=== PATIENT | female | born 1985 | race Caucasian/White ===

== ENCOUNTER 2022-02-22 19:58 | Emergency (ER) | payer OTHER ==
[2022-02-22 22:41] LABS: BASOPHIL 0.3 % (0-2); EOSINOPHIL 0.3 % (0-5); HCT 37.8 % (37.0-47.0); HGB 12.2 g/dl (12.5-16.0); LYMPHOCYTE 8.5 % (15-48); MCH 26.3 pg (25.0-31.0); MCHC 32.3 g/dL (32.0-36.0); MCV 81.5 fL (78.0-100.0); MONOCYTE 5.1 % (0-12); MPV 9.9 fL (6.0-9.5); NEUTROPHIL 85.4 % (41-80); NRBC 0; PLT 219 K/uL (150-400); RBC 4.64 M/uL (4.20-5.40); RDW 13.1 % (11.5-14.0); WBC 11.7 K/uL (4.0-10.5)
[2022-02-22 22:56] LABS: ALBUMIN 3.6 g/dL (3.4-5.0); BILIRUBIN - TOTAL 0.4 mg/dL (0.2-1.0); BUN/CREAT RATIO (CALC) 20.3 RATIO; CREATININE 0.74 mg/dL (0.51-0.95); GLOBULIN (CALCULATION) 3.8 g/dL; MAGNESIUM 2.2 mg/dL (1.8-2.4); POTASSIUM 3.5 mmol/L (3.5-5.1); TOTAL PROTEIN 7.4 g/dL (6.4-8.2)
[2022-02-22 22:58] LABS: BILIRUBIN 1+ mg/dL (NEGATIVE); BLOOD 3+ Ery/uL (NEGATIVE); CLARITY HAZY (CLEAR); COLOR YELLOW (YELLOW); GLUCOSE (U) NORMAL (NORMAL); LEUKOCYTES 2+ Leu/uL (NEGATIVE); NITRITE NEGATIVE (NEGATIVE); PROTEIN 2+ mg/dL (NEGATIVE); UROBILINOGEN 0.2 mg/dL (0.2-1.0)
[2022-02-22 23:12] LABS: BACTERIA 3+; URINARY WBC TNTC
[2022-02-23 00:10] LABS: CORONAVIRUS 2019 SARS-COV-2 NEGATIVE (NEGATIVE); INFLUENZA A NAA NEGATIVE (NEGATIVE)
[2022-02-23] MEDS ORDERED: BACTRIM DS TAB1 EACH PO (00:42)
[2022-02-23] MEDS ORDERED: CEFDINIR300 MG PO (00:46)
== END 2022-02-23 01:05 | disposition home or self-care (01) ==
LOC: FER 19:58
PROVIDERS: Internal Medicine
DX: N39.0 Urinary tract infection, site not specified (principal); R68.83 Chills (without fever); N93.9 Abnormal uterine and vaginal bleeding, unspecified; Z20.822 Contact with and (suspected) exposure to COVID-19
CPT/HCPCS: 36415; 80053; 81001; 83605; 83735; 84145; 84702; 85025; 86900; 86901; 87040; 87088; J0696; U0002

== ENCOUNTER → 2022-02-27 | Day surgery (SDC) | payer OTHER ==
[~2022-02-27] VITALS: Ht 167.6 cm; Wt 59.0 kg
[~2022-02-27] MED LIST: ADDERALL 10 MG10 MG PO; BACTRIM DS TAB1 EACH PO; CEFDINIR300 MG PO; IBUPROFEN800 M1 PO; SULFAMETHOXAZO1 EACH PO; ZYRTEC10 M3 PO
[2022-02-27 10:04] LABS: HCT 34.5 % (37.0-47.0); HGB 10.9 g/dl (12.5-16.0); MCH 26.2 pg (25.0-31.0); MCHC 31.6 g/dL (32.0-36.0); MCV 82.9 fL (78.0-100.0); RBC 4.16 M/uL (4.20-5.40)
== END | disposition home or self-care (01) ==
LOC: FAS 09:27
PROVIDERS: Obstetrics & Gynecology
DX: O03.4 Incomplete spontaneous abortion without complication (principal); R93.89 Abnormal findings on diagnostic imaging of other specified body structures
CPT/HCPCS: 36415; 84702; 86850; 86900; 86901; J1100; J1885; J2250; J2405; J2704; J3010; J7120